=== PATIENT | female | born 1990 | race African-American/Black ===

== ENCOUNTER 2020-05-10 05:17 | Emergency (ER) | payer OTHER ==
[~2020-05-10] VITALS: Ht 165.1 cm; Wt 56.7 kg
[2020-05-10 05:19] VITALS: BP 136/84
--- NOTE | 2020-05-10 05:20 | NUR ---
ED Nurse Note: PT BROUGHT IN BY NITA [facility] 826 FROM HOME C/O ABD PAIN X1HR ACCOMPANIED BY NAUSEA. DENIES VOMITING. VSS, NAD, AAOX4, AMBULATORY. ERMD AT BEDSIDE. 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
--- NOTE | 2020-05-10 05:26 | Emergency Room Report ---
History of Present Illness General Chief Complaint: Abdominal Pain Source: Patient (Janusz Richardson MD) Present Illness HPI This is a 30-year-old female with no past medical history. She woke up with acute onset of right lower quadrant abdominal pain. Pain is sharp. 10 out of 10. She says she was sweating because of the pain. [place] nauseous but no vomiting. No diarrhea. No hematuria. No urinary complaint. This been ongoing for about an hour and a half. But the pain did not get better, she called 911. Never had this problem before. Her last menstruation was 3 days ago. (Janusz Richardson MD) Allergies: Coded Allergies: MORPHINE (Verified Allergy, Mild, 05/10/20) COVID-19 Screening Contact w/high risk pt: No Recent Travel to affected area: No Experienced COVID-19 symptoms?: No COVID-19 Testing performed CARE TRANSITION MGR: No (Janusz Richardson MD) Patient History Past Medical History: see triage record, old chart reviewed Past Surgical History: none Pertinent Family History: none Social History: Denies: smoking Last Menstrual Period: 05/07/2020 Now: No Immunizations: other Reviewed Nursing Documentation: PMH: Agreed; PSxH: Agreed (Janusz Richardson MD) Nursing Documentation-PMH Past Medical History: No Stated History (Janusz Richardson MD) Review of Systems Eye: Denies: eye pain, blurred vision ENT: Denies: ear pain, nose congestion, throat swelling Respiratory: Denies: cough, shortness of breath Cardiovascular: Denies: chest pain, palpitations Gastrointestinal: Reports: abdominal pain; Denies: diarrhea, nausea, vomiting Musculoskeletal: Denies: back pain, joint pain Skin: Denies: rash Neurological: Denies: headache, numbness Endocrine: Denies: increased thirst, increased urine Hematologic/Lymphatic: Denies: easy bruising All Other Systems: negative except mentioned in HPI (Janusz Richardson MD) Physical Exam Vital Signs Date Time Temp Pulse Resp B/P (MAP) Pulse Ox O2 Delivery O2 Flow Rate FiO2 05/10/20 05:13 98.6 76 18 136/84 (101) 99 Room Air Vitals normal Sp02 EP Interpretation: reviewed, normal General Appearance: well appearing, no apparent distress, alert Head: normocephalic, atraumatic Eyes: bilateral eye PERRL, bilateral eye EOMI ENT: hearing grossly normal, normal pharynx Neck: full range of motion, supple, no meningismus Respiratory: chest non-tender, lungs clear, normal breath sounds Cardiovascular #1: regular rate, rhythm, no murmur Gastrointestinal: normal bowel sounds, no mass, no organomegaly, no bruit, non- distended, tenderness - Right lower quadrant Musculoskeletal: back normal, normal range of motion, gait/station normal Psychiatric: mood/affect normal (Janusz Richardson MD) Medical Decision Making Diagnostic Impression: Primary Impression: Abdominal pain Qualified Codes: R10.31 - Right lower quadrant pain Additional Impressions: Constipation Qualified Codes: K59.00 - Constipation, unspecified Ovarian cyst ER Course Patient presents with acute onset of right lower quadrant pain. Differentials included but not limited to ectopic, ruptured ovarian cyst, appendicitis, ureteral stone, dissection to name a few. Labs and CT scan ordered. Toradol given. will s/o to Dr. Florez for final dispo. (Janusz Richardson MD) ER Course Assumed care of the patient approximately [address] results Briefly, this a 30-year-old female presenting with sudden onset of right lower quadrant pain. Pain improved after receiving Toradol IV fluids. Labs are returned within normal limits. No acute finding aside from trace free fluid on CT scan. No evidence of appendicitis or obstruction but there was noted to be of moderate to high stool burden. Ultrasound was obtained for evaluation of ovarian cyst and torsion but has returned unremarkable again demonstrating free fluid. May have ruptured ovarian cyst or pain secondary to constipation. Patient has a history of multiple ovarian cysts, both hemorrhagic and nonhemorrhagic, which have ruptured in the past. Reports similar pain. Pain is now resolved. Will prescribe laxatives and patient has follow-up with her OB /WAREHOUSE DIRECTOR. We discussed reasons to return to the emergency department. She understands and agrees with treatment plan. Laboratory Tests Test 05/10/20 05:25 White Blood Count 5.6 K/UL (4.8-10.8) Red Blood Count 4.13 M/UL (4.20-5.40) L Hemoglobin 13.0 G/DL (12.0-16.0) Hematocrit 38.7 % (37.0-47.0) Mean Corpuscular Volume 94 FL (80-99) Mean Corpuscular Hemoglobin 31.4 PG (27.0-31.0) H Mean Corpuscular Hemoglobin Concent 33.6 G/DL (32.0-36.0) Red Cell Distribution Width 11.0 % (11.6-14.8) L Platelet Count 185 K/UL (150-450) Mean Platelet Volume 9.8 FL (6.5-10.1) Neutrophils (%) (Auto) 52.7 % (45.0-75.0) Lymphocytes (%) (Auto) 34.5 % (20.0-45.0) Monocytes (%) (Auto) 7.3 % (1.0-10.0) Eosinophils (%) (Auto) 3.8 % (0.0-3.0) H Basophils (%) (Auto) 1.7 % (0.0-2.0) Urine Color [place] Urine Appearance Clear Urine pH 6 (4.5-8.0) Urine Specific [place] 1.020 (1.005-1.035) Urine Protein Negative (NEGATIVE) Urine Glucose (UA) Negative (NEGATIVE) Urine Ketones Negative (NEGATIVE) Urine Blood Negative (NEGATIVE) Urine Nitrite Negative (NEGATIVE) Urine Bilirubin Negative (NEGATIVE) Urine Urobilinogen 1 MG/DL (0.0-1.0) H Urine Leukocyte Esterase Negative (NEGATIVE) Urine HCG, Qualitative Negative (NEGATIVE) Sodium Level 139 MMOL/L (136-145) Potassium Level 3.6 MMOL/L (3.5-5.1) Chloride Level 104 MMOL/L (98-107) Carbon Dioxide Level 26 MMOL/L (21-32) Anion Gap 9 mmol/L (5-15) Blood Urea Nitrogen 14 mg/dL (7-18) Creatinine 1.0 MG/DL (0.55-1.30) Estimated Glomerular Filtration Rate > 60 mL/min (>60) Glucose Level 103 MG/DL (74-106) Calcium Level 8.5 MG/DL (8.5-10.1) Total Bilirubin 0.2 MG/DL (0.2-1.0) Aspartate Amino Transferase (AST) 20 U/L (15-37) Alanine Aminotransferase (ALT) 23 U/L (12-78) Alkaline Phosphatase 62 U/L (46-116) Total Protein 6.6 G/DL (6.4-8.2) Albumin 3.7 G/DL (3.4-5.0) Globulin 2.9 g/dL Albumin/Globulin Ratio 1.3 (1.0-2.7) Lipase 109 U/L (73-393) (Sivakumar Florez MD) CT/MRI/US Diagnostic Results CT/MRI/US Diagnostic Results : Impression CT IMPRESSION: 1. No renal or ureteral calculus. 2. No CT evidence for appendicitis. 3. Nonspecific bowel gas pattern with moderate to large retained stool. 4. Trace free fluid in the pelvis, nonspecific. No free air Dictated By: Chelsea Garcia MD Electronically Signed By: Chelsea Garcia MD Signed Date/Time 05/10/20 0645 US IMPRESSION: Small free fluid around left adnexa, likely physiologic or may be a small ruptured cyst. Small bilateral ovarian follicles. Otherwise, unremarkable. Dictated By: JULIEN RAMIREZ M.D. Electronically Signed By: JULIEN RAMIREZ M.D. Signed Date/Time 05/10/20 0918 CC: Sivakumar Florez MD CC: Janusz Richardson MD (Sivakumar Florez MD) Last Vital Signs Date Time Temp Pulse Resp B/P (MAP) Pulse Ox O2 Delivery O2 Flow Rate FiO2 05/10/20 05:19 76 18 Room Air 05/10/20 05:19 98.6 136/84 99 (Janusz Richardson MD) Disposition: HOME, SELF-CARE Condition: Stable Scripts Docusate Sodium* (DOCUSATE SODIUM*) 100 Mg Capsule 100 MG ORAL TWICE A DAY, #10 CAP Prov: Sivakumar Florez MD 05/10/20 Polyethylene Glycol 3350* (MIRALAX*) 17 Gm Powd.pack 17 GM ORAL TID for 3 Days, #30 PACKET Prov: Sivakumar Florez MD 05/10/20 Janusz Richardson MD May 10, 2020 05:26 Sivakumar Florez MD May 10, 2020 09:04
[2020-05-10] MEDS ORDERED: Ketorolac 30mg Inj IV ONE (05:30)
--- NOTE | 2020-05-10 05:30 | NUR ---
ED Nurse Note: BLOOD AND URINE COLLECTED AND SENT TO LAB.
[2020-05-10 05:56] LABS: APPEARANCE,URINE CLEAR; BILIRUBIN, URINE NEGATIVE (NEGATIVE); GLUCOSE, URINE (UA) NEGATIVE (NEGATIVE); KETONES,URINE NEGATIVE (NEGATIVE); LEUKOCYTE ESTERASE ,URINE NEGATIVE (NEGATIVE); NITRITE,URINE NEGATIVE (NEGATIVE); PH,URINE 6 (4.5-8.0); PROTEIN,URINE NEGATIVE (NEGATIVE); UROBILINOGEN,URINE 1 MG/DL (0.0-1.0)
[2020-05-10 06:03] LABS: COLOR,URINE ORANGE
[2020-05-10 06:04] LABS: BASOPHILS % (AUTO) 1.7 % (0.0-2.0); EOSINOPHILS % (AUTO) 3.8 % (0.0-3.0); HEMATOCRIT 38.7 % (37.0-47.0); LYMPHOCYTES % (AUTO) 34.5 % (20.0-45.0); MEAN CORPUSCULAR VOLUME 94 FL (80-99); MONOCYTES % (AUTO) 7.3 % (1.0-10.0); NEUTROPHILS % (AUTO) 52.7 % (45.0-75.0); PLATELET COUNT 185 K/UL (150-450); RED BLOOD COUNT 4.13 M/UL (4.20-5.40); WHITE BLOOD COUNT 5.6 K/UL (4.8-10.8)
[2020-05-10 06:06] LABS: ANION GAP 9 mmol/L (5-15); BLOOD UREA NITROGEN 14 mg/dL (7-18); CALCIUM 8.5 MG/DL (8.5-10.1); CARBON DIOXIDE 26 MMOL/L (21-32); CHLORIDE 104 MMOL/L (98-107); POTASSIUM 3.6 MMOL/L (3.5-5.1); SODIUM 139 MMOL/L (136-145)
--- NOTE | 2020-05-10 06:11 | NUR ---
ED Nurse Note: pt went for ct
[2020-05-10 06:17] LABS: ALANINE AMINOTRANSFERASE 23 U/L (12-78); ALBUMIN 3.7 G/DL (3.4-5.0); ALBUMIN/GLOBULIN RATIO 1.3 (1.0-2.7); ALKALINE PHOSPHATASE 62 U/L (46-116); ASPARTATE AMINO TRANSFERASE 20 U/L (15-37); BILIRUBIN,TOTAL 0.2 MG/DL (0.2-1.0)
--- NOTE | 2020-05-10 06:20 | NUR ---
ED Nurse Note: PT BACK FROM CT.
--- NOTE | 2020-05-10 06:45 | Diagnostic Imaging Report ---
EXAM: CT Abdomen and Pelvis Without Intravenous Contrast CLINICAL HISTORY: ABD PAIN TECHNIQUE: Axial computed tomography images of the abdomen and pelvis without intravenous contrast. CTDI is 3.6 mGy and DLP is 187.9 mGy-cm. One or more of the following dose reduction techniques were used: automated exposure control, adjustment of the mA and/or kV according to patient size, use of iterative reconstruction technique. COMPARISON: . No prior CT. FINDINGS: Limitations: Absent IV and oral contrast limit evaluation. Lung bases: Unremarkable. No mass. No consolidation. ABDOMEN: Liver: Unremarkable. Gallbladder and bile ducts: Unremarkable. No calcified stones. No ductal dilation. Pancreas: Unremarkable. No ductal dilation. Spleen: Unremarkable. No splenomegaly. Adrenals: Unremarkable. No mass. Kidneys and ureters: No renal or ureteral calculus. No hydronephrosis. Stomach and bowel: Nonspecific bowel gas pattern with moderate to large retained stool. Thickening of the stomach wall likely due to under distention. No bowel obstruction. PELVIS: Appendix: No CT evidence for appendicitis. Bladder: Unremarkable. No stones. Reproductive: Retroverted uterus. ABDOMEN and PELVIS: Intraperitoneal space: Small free fluid in the pelvis, nonspecific. No free air. Bones/joints: No acute fracture. No dislocation. Soft tissues: Unremarkable. Vasculature: Unremarkable. No abdominal aortic aneurysm. Lymph nodes: Unremarkable. No enlarged lymph nodes. IMPRESSION: 1. No renal or ureteral calculus. 2. No CT evidence for appendicitis. 3. Nonspecific bowel gas pattern with moderate to large retained stool. 4. Trace free fluid in the pelvis, nonspecific. No free air
--- NOTE | 2020-05-10 08:20 | NUR ---
ED Nurse Note: US tech at bedside.
[2020-05-10] MEDS ORDERED: MIRALAX17 G2 ORAL (09:00)
[2020-05-10] MEDS ORDERED: DOCUSATE SODIU100 MG ORAL (09:00)
[2020-05-10 09:05] VITALS: BP 130/86
--- NOTE | 2020-05-10 09:05 | NUR ---
ER DISCHARGE NOTE: Patient is cleared to be discharged per ERMD, pt is aox4, on room air, with stable vital signs. pt was given dc and prescription instructions, pt was able to verbalize understanding, pt id band and iv site removed without complications. pt is able to ambulate with steady gait. pt took all belongings.
--- NOTE | 2020-05-10 09:19 | Diagnostic Imaging Report ---
EXAM: US Pelvis Transabdominal, Complete CLINICAL HISTORY: ABD PAIN TECHNIQUE: Real-time complete transabdominal pelvic ultrasound with image documentation. COMPARISON: CT abdomen and pelvis today FINDINGS: Uterus/cervix: Uterus measures 7.88 x 4.9 x 3.9 cm. Endometrial stripe thickness within normal limits, 8.3 mm. No myometrial mass. Right ovary: Right ovary measures 3.78 x 2.3 x 2.40 cm. Small follicles. Normal blood flow. Left ovary: Left ovary measures 3.3 x 2.26 x 1.87 cm. Small follicles. Normal blood flow. Free fluid: Small free fluid around left adnexa, likely physiologic. Bladder: Unremarkable as visualized. Wall is normal thickness for degree of distention. IMPRESSION: Small free fluid around left adnexa, likely physiologic or may be a small ruptured cyst. Small bilateral ovarian follicles. Otherwise, unremarkable.
== END 2020-05-10 09:05 | disposition home or self-care (01) ==
LOC: EDBD 05:17 → EMR 05:28
DX: R10.31 Right lower quadrant pain (principal); K59.00 Constipation, unspecified; N83.209 Unspecified ovarian cyst, unspecified side
CPT/HCPCS: 36415; 74176; 76830; 76856; 80053; 81003; 81025; 83690; 85025; 96361; 96374; 96375; J1885; J2405; J7030; Z7502; 99284